=== PATIENT | female | born 1955 | race Caucasian/White ===

== ENCOUNTER 2021-01-24 14:17 | Observation (INO) ==
[2021-01-24 14:47] LABS: ABS Eosinophils 0.4 10^3/ul (0-0.6); ABS Lymphocytes 1.4 10^3/ul (1.0-4.8); ABS Monocytes 0.5 10^3/ul (0-0.8); ABS Neutrophils 3.8 10^3/ul (1.5-7.7); Eosinophil % 5.9 %; Hematocrit 36 % (35-47); Hemoglobin 12.6 g/dL (12.0-16.0); Lymphocyte % 23.8 %; Mean Corpuscular HGB Conc 35 g/dL (31-36); Mean Corpuscular Hemoglobin 31 pg (27-31); Mean Corpuscular Volume 88 fL (80-97); Mean Platelet Volume 7.8 fL (7.4-10.4); Platelet Count 201 10^3/uL (150-450); Red Blood Count 4.14 10^6 /uL (3.70-4.87); Red Cell Distribution Width 13 % (10-15); White Blood Count 6.1 10^3/uL (3.5-10.8)
[2021-01-24 14:56] LABS: INR 1.03 (0.86-1.15)
[2021-01-24 15:06] LABS: Albumin 3.9 g/dL (3.2-5.2); Albumin/Globulin Ratio 1.4 (1-3); Calcium 9.2 mg/dL (8.6-10.3); EGFR African American 85.9 (>60); Globulin 2.7 g/dL (2-4); Potassium 3.7 mmol/L (3.5-5.0); Total Bilirubin 0.5 mg/dL (0.2-1.0); Total Protein 6.6 g/dL (6.4-8.9)
[2021-01-24] MEDS ORDERED: Lactated Ringers 1000 ml BAG 1,000 ML IV SCH (16:00)
[2021-01-24] MEDS ORDERED: Potassium Chlor 10 meq TAB PO ONE (20:15)
[2021-01-24 20:43] LABS: Magnesium 1.5 mg/dL (1.9-2.7)
[2021-01-24] MEDS ORDERED: Enoxaparin 40 MG/0.4 ML SYR SUBCUT SCH (22:00)
[2021-01-25 01:25] LABS: C Reactive Protein < 1.00 mg/L (<8.01)
[2021-01-25] MEDS ORDERED: Magnesium Sulfate 2 gm BAG 2 GM/50 ML BAG IVPB ONE (06:38)
[2021-01-25 06:55] LABS: Calcium 9.3 mg/dL (8.6-10.3); EGFR African American 92.4 (>60); EGFR Non-African American 76.4 (>60); Potassium 3.7 mmol/L (3.5-5.0)
[2021-01-25] MEDS ORDERED: Potassium Chlor 20 meq TAB.ER PO ONE (07:34)
[2021-01-25] MEDS ORDERED: Aspirin EC 81 mg TAB.EC (enteric coated) PO SCH (09:00)
[2021-01-25 16:09] VITALS: BP 128/85
== END 2021-01-25 19:15 | disposition home or self-care (01) ==
LOC: ED 14:17 → MEDTELE 14:17 → SUATTDRO 19:40 → MEDTELE 22:43
PROVIDERS: ADMIT Internal Medicine; ATTEND Hospitalist